=== PATIENT | female | born 1955 | race Caucasian/White ===

== ENCOUNTER 2017-02-10 10:22 | Outpatient (CLI) | payer OTHER | END 2017-02-10 19:25 | disposition home or self-care (01) | LOC: SRD 10:22 | PROVIDERS: ATTEND Family Medicine | DX: M17.11 Unilateral primary osteoarthritis, right knee (principal); M25.562 Pain in left knee; I70.90 Unspecified atherosclerosis; Z96.652 Presence of left artificial knee joint ==

== ENCOUNTER 2017-06-29 17:41 | Outpatient (CLI) | payer OTHER | END 2017-06-29 19:23 | disposition home or self-care (01) | LOC: SRD 17:41 | PROVIDERS: ATTEND Family Medicine | DX: I51.7 Cardiomegaly (principal); J45.909 Unspecified asthma, uncomplicated | CPT/HCPCS: 71020-TC ==

== ENCOUNTER 2017-09-20 15:21 | Outpatient (CLI) | payer OTHER | END 2017-09-20 21:23 | disposition home or self-care (01) | LOC: SRD 15:21 | PROVIDERS: ATTEND Family Medicine | DX: I50.9 Heart failure, unspecified (principal) | CPT/HCPCS: 71020-TC ==

== ENCOUNTER 2017-09-22 13:46 | Outpatient (CLI) | payer OTHER ==
[2017-09-22] MEDS ORDERED: IOHEXOL 100 ML IV ONE (14:17)
== END 2017-09-22 21:23 | disposition home or self-care (01) ==
LOC: SCT 13:46
PROVIDERS: ATTEND Family Medicine
DX: I51.7 Cardiomegaly (principal); I31.3 Pericardial effusion (noninflammatory); J90 Pleural effusion, not elsewhere classified; R93.8 Abnormal findings on diagnostic imaging of other specified body structures
CPT/HCPCS: 71250; Q9967

== ENCOUNTER 2020-09-14 02:25 | Inpatient (IN) | payer OTHER, SELFPAY ==
[~2020-09-14] VITALS: Ht 157.5 cm; Wt 68.0 kg
[2020-09-14] VITALS (22 sets, daily range): BP systolic 42–130
--- NOTE | 2020-09-14 02:26 | NUR ---
Received patient to [facility] via EMS ambulance w/ initial c/o sob, low b/p (90/40) and hr of 20. Introduced self to patient, placed on property assessment monitor hr noted at 20, unable to obtain b/p positioned patient for comfort and safety, crash cart at bedside, 2nd iv h.l. started to right forearm (site patent and intact). Continue to monitor level of comfort. Patient resting quietly.
--- NOTE | 2020-09-14 02:30 | NUR ---
ER at bedside examining patient. patient ok to receive x1 amp atropine followed by dopamine if atropine not effective.
--- NOTE | 2020-09-14 02:40 | NUR ---
Patient started on Dopamine at 5mcg/kg/min (68kg) followed by placed on pacer at rate of 70 w/ mA of 10 (placed at 12 mA) Patient w/ ventricular pace. c/o feeling nausea. Will medicate as ordered. continue to monitor. Patient resting quietly.
[2020-09-14] MEDS ORDERED: ATROPINE SULFATE 1 MG/10 ML SYRINGE IVP ONE (02:45)
--- NOTE | 2020-09-14 02:50 | NUR ---
patient medicated as ordered w/ zofran 4mg ivp, (site patent and intact, given x1 liter of NS as ordered) continue to monitor.
[2020-09-14] MEDS ORDERED: ONDANSETRON HCL 4 MG/2 ML VIAL ONE (03:06)
[2020-09-14] MEDS ORDERED: ONDANSETRON HCL 4 MG/2 ML VIAL IVP ONE (03:15)
--- NOTE | 2020-09-14 03:30 | NUR ---
Patient b/p noted at 121/52 at 6mcg/kg/min hr still pacing at 70 Patient resting quietly. No acute distress noted. Vital signs within normal range. positioned patient for comfort, bed to low position sr up, continue to monitor.
[2020-09-14 03:48] LABS: BASOPHILS % (AUTO) 0.5 % (0.0-2.0); EOSINOPHILS % (AUTO) 0.1 % (0.0-4.0); HEMATOCRIT 31.2 % (36-48); HEMOGLOBIN 9.4 g/dL (12.0-16.0); LYMPHOCYTES # (AUTO) 1.3 K/uL (1.0-5.5); LYMPHOCYTES % (AUTO) 17.2 % (20.5-51.5); MEAN CORPUSCULAR HEMOGLOBIN 25 pg (27-31); MEAN CORPUSCULAR HGB CONC 30 % (32-36); MEAN CORPUSCULAR VOLUME 84 fL (79.0-98.0); MONOCYTES # (AUTO) 0.8 K/uL (0.0-1.0); MONOCYTES % (AUTO) 11.4 % (1.7-9.3); NEUTROPHILS # (AUTO) 5.2 K/uL (1.8-7.7); NEUTROPHILS % (AUTO) 70.8 % (40.0-70.0); PLATELET COUNT (AUTO) 286 K/uL (130-430); RED BLOOD CELL COUNT(AUTO) 3.73 MIL/uL (4.2-6.2); RED CELL DISTRIBUTION WIDTH 17.8 % (9.0-15.0); WHITE BLOOD COUNT (AUTO) 7.3 K/uL (4.8-10.8)
[2020-09-14 03:58] LABS: ANION GAP 10 (5-15); CHLORIDE 111 mmol/L (98-107); CREATININE 1.62 mg/dL (0.55-1.30); GLUCOSE 150 mg/dL (70-99); SODIUM SERUM 141 mmol/L (136-145); UREA NITROGEN, BLOOD 54 mg/dL (8-21)
[2020-09-14 04:02] LABS: ALANINE AMINOTRANSFERASE 20 U/L (12-78); ALBUMIN 1.4 g/dL (3.4-4.8); ASPARTATE AMINOTRANSFERASE 26 U/L (10-37); TOTAL BILIRUBIN 0.4 mg/dL (0.0-1.0)
[2020-09-14 04:18] LABS: GFR AFRICAN AMERICAN 41 mL/min (>90)
[2020-09-14 04:20] LABS: CALCIUM < 5.0 mg/dL (8.4-11.0)
[2020-09-14] MEDS ORDERED: CALCIUM GLUCONATE 1 GM/10 ML VIAL ONE (04:27)
[2020-09-14] MEDS ORDERED: CALCIUM GLUCONATE 1 GM in NS 100 ML IV ONE (04:30)
[2020-09-14] MEDS ORDERED: PIPERACILLIN/TAZO 3.375 GM in NS 50 ML IV ONE (04:30)
--- NOTE | 2020-09-14 04:37 | NUR ---
patient pox decreased to 65 on 5l n/c, patient placed on NRB RT at bedside to place patient on high flow o2 b/p noted at 100/24 on dopamine 6mcg/min. continue to monitor.
[2020-09-14] MEDS ORDERED: PIPERACILLIN/TAZOBACTAM 3.375 GM/VIAL (ZOSYN) IV ONE (04:43)
--- NOTE | 2020-09-14 04:57 | NUR ---
increased dopamine to 7.5mcg/kg/min b/p increased to 111/72 w/ map 85 hr of 81.
[2020-09-14] MEDS ORDERED: KCL 20 mEq in 100 mL (PREMIX) 100 ML IV ONE ×2 (05:15→11:45)
--- NOTE | 2020-09-14 05:20 | NUR ---
# 16 FR Membreno catheter with use of sterile technique. Immediate return of cc urine noted. Bedside drainage bag placed below level of bladder. Urine sample collected and sent to lab. Pt tolerated procedure . Patient arrived with membreno in place, changed due to standard of practice prior to admission. Patient unable to toilet self.
--- NOTE | 2020-09-14 05:24 | NUR ---
After insertion of membreno catheter, patient noted to have agonal resp and slowing down of heart rate (from 70 back down to 20), MD Gamal woods at bedside (plz see john bear sheet).
--- NOTE | 2020-09-14 05:37 | NUR ---
Return of spontaneous circulation, patient intubated w/ 7.5 ett tied at 24 lip line. Vent settings noted at VT 450, AC 22, Fio2 100%. HOB elevated at 30 degrees. Ngt placed and verified placement via gastric contents and auscultations. Will start Epi gtt (4mg in 250ml NS).
[2020-09-14] MEDS ORDERED: EPINEPHRINE AMPULE IV PRN (06:00)
[2020-09-14] MEDS ORDERED: NS IV PRN (06:00)
[2020-09-14] MEDS ORDERED: MORPHINE 2 MG/ML INJ. SYRINGE IVP PRN (06:45)
[2020-09-14] MEDS ORDERED: MORPHINE 4 MG/ML INJ. SYRINGE IVP PRN (06:45)
[2020-09-14] MEDS ORDERED: NALOXONE HCL 0.4 MG/ML AMP (NARCAN) IVP PRN (06:45)
[2020-09-14] MEDS ORDERED: D5/0.45 NS 1,000 ML IV SCH (06:45)
[2020-09-14] MEDS ORDERED: LORazepam 2 MG/ML VIAL IVP PRN (06:45)
[2020-09-14] MEDS ORDERED: ONDANSETRON HCL 4 MG/2 ML VIAL IVP PRN (06:45)
--- NOTE | 2020-09-14 06:45 | NUR ---
@[id number] Yeung in intubation of pt. Size 7.5 ETT secured @ 26cm, awaiting confirmation from CXR.
--- NOTE | 2020-09-14 08:14 | NUR ---
Dr. JERRY at bedside examining patient.
--- NOTE | 2020-09-14 09:13 | NUR ---
Patient will be admitted to care of Dr. Bean. Admitted to ICU unit. Will go to room 8 . Belongings list completed. Complete and up to date summary report printed. SBAR report to be given at bedside with opportunity for questions.
[2020-09-14] MEDS ORDERED: ACETAMINOPHEN 325 MG TABLET PO PRN (09:15)
--- NOTE | 2020-09-14 09:15 | NUR ---
Transfer to ICU via ACLS protocol. Licensed nurse present. IV present no signs or symptoms of infiltration.
--- NOTE | 2020-09-14 09:18 | NUR ---
DR. ROSALINO SARAH FOR Dx PULMONARY FAILURE
--- NOTE | 2020-09-14 09:30 | NUR ---
TO ICU. RECEIVED IN ROOM 8, MECHANICALLY VENTILATED, ON EPINEPHRINE DRIP AT 10 MCG/MIN, DOPAMINE DRIP AT 15 MCG/KG/MIN INFUSING THRU PERIPHERAL LINES, , STONE UNLOADER ON ATRIAL FIB, PATIENT AWAKE, EYES MOVING UPWARD, NOT TRACKING, GAZES TO RIGHT SIDE OF THE BED, HER UPPER LIMBS DECEREBRATING, EDEMA TO LOWER EXTREMITIES, TRIPLE CENTRAL LINE IN RIGHT FEMORAL AREA, SEO CATHETER DRAINING INDY URINE.
--- NOTE | 2020-09-14 09:45 | NUR ---
RT NOTES RECEIVED NEW ORDER FROM DR. JERRY. INCREASED VT TO 550ml. RN JERMAIN MADE AWARE. WILL CONTINUE MONITORING.
--- NOTE | 2020-09-14 10:01 | NUR ---
CONSULT CARDIO. CONSULTING MD: DR. LIEBERMAN SPOKE TO: VIRGILIO DIALED: [phone] ORDERED BY: DR. CRUZ
--- NOTE | 2020-09-14 10:04 | NUR ---
CONSULT NEURO. CONSULTING MD: DR. RIGGS SPOKE TO: DIALED: [phone] ORDERED BY: DR. CRUZ
--- NOTE | 2020-09-14 10:05 | NUR ---
CONSULT NEPHRO. CONSULTING MD: DR. ARGUELLES SPOKE TO: DONI DIALED: [phone] ORDERED BY: DR. CRUZ
--- NOTE | 2020-09-14 10:20 | NUR ---
CARDIO. PT HAVING AN ECHOCARDIOGRAM AT THIS HOUR.
[2020-09-14 10:38] LABS: INR 1.3 (0.8-1.2); PROTHROMBIN TIME 13.7 SECS (9.5-12.5)
[2020-09-14] MEDS ORDERED: KCL 40 mEq in 100 mL (PREMIX) 0 ML IV ONE (11:40)
[2020-09-14] MEDS: PIPERACILLIN/TAZO 3.375/DEX-IS 50 ML IV SCH ×3 (11:59→23:34)
[2020-09-14] MEDS ORDERED: DOPamine PREMIX 250 ML IV PRN (12:00)
--- NOTE | 2020-09-14 12:05 | NUR ---
RT NOTES FIO2 to 0.80. RN Stacy made aware.
--- NOTE | 2020-09-14 13:24 | NUR ---
EKG. TEST PERFORMED AT BEDSIDE. REPORT TO BE DELIVERED TO DR LIEBERMAN BY CARDIOLOGY STAFF
--- NOTE | 2020-09-14 14:50 | NUR ---
FAMILY. CALL FROM LAVINIA JEFFRIES RECEIVED, STATED THAT SHE IS HER DAUGHTER, UPDATE ON PT'S STATUS GIVEN.
--- NOTE | 2020-09-14 15:00 | NUR ---
RT NOTE: 1500 Changed rate and Vt per Dr Frideman. Will do ABG in 2 hours. KATERYNA noble. Addendum: 09/14/20 at 1513 by Cristine Little RT Amended: Links added.
--- NOTE | 2020-09-14 15:05 | NUR ---
FAMILY. RECEIVED A CALL FROM KINGPT'S BROTHER, UPDATE ON HER STATUS GIVEN.
[2020-09-14] MEDS: NS IV PRN (15:18)
[2020-09-14] MEDS: EPINEPHRINE AMPULE IV PRN (15:18)
[2020-09-14] MEDS ORDERED: NS 250 ML IV ONE (15:45)
[2020-09-14 16:34] LABS: CALCIUM 8.6 mg/dL (8.4-11.0); CREATININE 3.39 mg/dL (0.55-1.30); POTASSIUM 5.4 mmol/L (3.5-5.1)
[2020-09-14 16:43] LABS: ALBUMIN 2.3 g/dL (3.4-4.8); TOTAL BILIRUBIN 1.3 mg/dL (0.0-1.0)
--- NOTE | 2020-09-14 17:30 | NUR ---
ELEVATED TROPONIN. CALLED DR LIEBERMAN AND HE CALLED BACK. MADE HIM AWARE OF PT'S CURRENT TROPONIN 1.225, K LEVEL 5.4, NO NEW ORDERS RECEIVED.
--- NOTE | 2020-09-14 17:50 | NUR ---
FAMILY. PTS SON AILYN AND HER NIECE KARISHMA VISITING PATIENT. UPDATED THE FAMILY ON STATUS. PERSONAL BELONGINGS HANDED TO PT'S SON TO BE TAKEN HOME.
--- NOTE | 2020-09-14 18:30 | NUR ---
PAGED FOR ORDERS DIALED: [phone] SPOKE TO: AUTOMATED EXCHANGE
--- NOTE | 2020-09-14 18:50 | NUR ---
. DR JERRY RETURNED THE CALL AND MADE HIM AWARE OF PT'S LATEST ABG RESULT, NO NEW ORDERS.
--- NOTE | 2020-09-14 19:25 | NUR ---
PM SHIFT ASSESSMENT Pt is unable to make needs known. O2 via vent, tolerating current vent settings. AFIB on the monitor. Skin warm and dry. IVF, Epi drip and Dopamine Drip infusing. Keene catheter in place and draining to gravity. Safety precautions in place, call light within reach. Will continue to monitor.
[2020-09-14] MEDS ORDERED: FAMOTIDINE PF 20 MG/2 ML VIAL IVP SCH (21:00)
[2020-09-14] MEDS: DOPamine PREMIX 250 ML IV PRN (21:03)
--- NOTE | 2020-09-14 21:37 | NUR ---
Patient noted to be Asystole on the monitor, Code Blue called, CPR initiated.
--- NOTE | 2020-09-14 21:45 | NUR ---
Code blue ended, pulses palpable. Patient on external pacer order by ER MD QUILES.
[2020-09-14] MEDS ORDERED: methylPREDNISolone SOD SUCC/PF 62.5 MG/ML VIAL IVP SCH (22:00)
--- NOTE | 2020-09-14 22:15 | NUR ---
Spoke to Haley, patients family member requested to facetime with patient to give last rights. Will facetime with family.
[2020-09-15] VITALS: BP_SYST 113
[2020-09-15 01:00] VITALS: BP_SYST 118
[2020-09-15 01:40] VITALS: BP_SYST 115
[2020-09-15] MEDS: NS IV PRN (01:53)
[2020-09-15] MEDS: EPINEPHRINE AMPULE IV PRN (01:53)
[2020-09-15] MEDS: DOPamine PREMIX 250 ML IV PRN (01:54)
[2020-09-15 02:00] VITALS: BP_SYST 115
--- NOTE | 2020-09-15 02:08 | NUR ---
Patient noted to be asystolic on the monitor. No pulses felt, code blue called and CPR initiated.
--- NOTE | 2020-09-15 02:35 | NUR ---
ER MD QUILES spoke patients sonRamiro and was agreeable to end Code Blue and notified him of patients passing.
--- NOTE | 2020-09-15 02:47 | NUR ---
NOTIFIED OF EXPIRATION [phone] -SPOKE TO: GINA BERNARDO [phone] GRETA ARGUELLES DINESH -[facility]: [facility] [phone] -SPOKE TO: NO ANSWER, UNABLE TO LEAVE VOICEMAIL DUE TO FULL MAILBOX
--- NOTE | 2020-09-15 04:15 | NUR ---
Called patients son, Ramiro Cerda to ask if he was still attempting to see his mother before patient is taken to [facility] [place]. Left voicemail, waiting for call back.
--- NOTE | 2020-09-15 05:30 | NUR ---
Called patients son, Ramiro Cerda to ask if he was still attempting to see his mother before patient is taken to [facility] [place]. Left voicemail, waiting for call back.
--- NOTE | 2020-09-15 08:58 | NUR ---
Nutrition Update Aiden scale 12 noted. Pt admitted for respiratory failure, cardiac failure Diet: NPO BMI: 27.4 kg/m2 RD to follow per nutrition care standards.
--- NOTE | 2020-09-15 15:00 | NUR ---
SS notes/body hold: SPRAY CEMENTER spoke with son, Cameron. Per Cameron, they have decided to do cremation. SPRAY CEMENTER provided resources and Cameron will update SS.
== END 2020-09-15 02:30 | disposition expired | DRG 208 ==
LOC: SED 02:25 → SIC 05:52
PROVIDERS: ADMIT Internal Medicine Hospice and Palliative Medicine; ATTEND Internal Medicine Hospice and Palliative Medicine
PROC: 0BH17EZ Insertion of Endotracheal Airway into Trachea, Via Natural or Artificial Opening (ICD-10-PCS; principal; 2020-09-14)
PROC: 5A1935Z Respiratory Ventilation, Less than 24 Consecutive Hours (ICD-10-PCS; 2020-09-14)
DX: J96.01 Acute respiratory failure with hypoxia (principal); E43 Unspecified severe protein-calorie malnutrition; E87.2 Acidosis; G93.40 Encephalopathy, unspecified; I42.0 Dilated cardiomyopathy; I48.20 Chronic atrial fibrillation, unspecified; N17.9 Acute kidney failure, unspecified; E11.9 Type 2 diabetes mellitus without complications; E83.51 Hypocalcemia; E87.6 Hypokalemia; I11.0 Hypertensive heart disease with heart failure; I46.9 Cardiac arrest, cause unspecified; I50.9 Heart failure, unspecified; Z20.828 Contact with and (suspected) exposure to other viral communicable diseases; Z96.653 Presence of artificial knee joint, bilateral; R68.0 Hypothermia, not associated with low environmental temperature; R57.0 Cardiogenic shock; Z68.27 Body mass index [BMI] 27.0-27.9, adult
CPT/HCPCS: 36415; 36600; 71045; 80053; 80061; 82550-TC; 82803-TC; 82962; 83880; 84484; 85025; 85379; 85384-TC; 85610-TC; 86140; 93005; 93306; 94002; 94003; 94640; 94660; 96365; 96367; 96375; 99291; 99292; J0171; J0610; J1265; J2060; J2405; J2543; J2930; J3480; J3490; J7050; U0003